=== PATIENT | female | born 1950 | race Caucasian/White ===

== ENCOUNTER 2017-12-21 07:30 | Inpatient (IN) ==
[~2017-12-21 07:30] MED LIST: ACETAMINOPHEN 500 MG TABLET PO ONE; CLINDAMYCIN PB 900 MG/50 ML BAG IV ONE; FAMOTIDINE PB 20 MG/50 ML BAG IV ONE; LIDOCAINE 1% (10mg/ml) 2mL INJ PF SDV ID ONE; METOCLOPRAMIDE 10mg/2ml INJECTION IVP ONE; ONDANSETRON 4 MG/2 ML INJECTION IVP ONE
[2017-12-21] MEDS ORDERED: EPINEPHrine PF 0.25 MG, BUPIVACAINE 0.25% PF 30 ML, KETOROLAC INJ 60 MG in NS 30 ML OPSITE ONE (08:00)
[2017-12-21 08:15] VITALS: BMI 42.5
[2017-12-21] MEDS: LR 1,000 ML IV SCH ×2 (08:40→12:22)
[2017-12-21] MEDS: NOZIN NASAL SWAB NAS SCH ×5 (08:47→21:44)
[2017-12-21] MEDS ORDERED: PROPOFOL 40 ML ONE (09:19)
[2017-12-21] MEDS ORDERED: LIDOCAINE 1% (10mg/ml) 30ml SDV INJ ONE (09:20)
[2017-12-21] MEDS ORDERED: BUPIVACAINE 0.75%/DEXTROSE 8.5% SPINAL 2 ML AMPULE IJ ONE (09:20)
[2017-12-21] MEDS ORDERED: ROPIVACAINE 0.5% (5mg/ml) 30ml INJ ONE (09:20)
[2017-12-21] MEDS ORDERED: PROPOFOL 20 ML ONE (09:22)
[2017-12-21] MEDS ORDERED: NS TOP ONE (09:30)
[2017-12-21] MEDS ORDERED: TRANEXAMIC ACID TOP ONE (09:30)
[2017-12-21] MEDS ORDERED: VANCOMYCIN 1,000 MG INJECTION IAR ONE (09:33)
[2017-12-21] MEDS ORDERED: MIDAZOLAM 2mg/2ml INJECTION ONE (10:00)
--- NOTE | 2017-12-21 11:52 | Operative Note ---
- Procedure Preoperative Diagnosis: Right knee primary degenerative joint disease Postoperative Diagnosis: Same as preoperative diagnosis. Surgeon: Katherine Uribe MD [employer] Operator: Gemma Oconnor Complications: None. Anesthesia: Spinal. Estimated Blood Loss: See Anesthesia Record. Fluids: Please see Anesthesia Record. Description of Procedure: Mrs. Ch and her right knee were identified and marked in the preoperative holding area. She was brought back to the operating suite. Spinal anesthetic was administered and she was placed supine on the operating table. The right lower extremity was prepped and draped in my normal sterile fashion. Timeout was performed. The [employer] robotic arm was used during the surgery. She had a fixed varus deformity with this 15 flexion contracture. A standard anterior midline incision followed by medial parapatellar arthrotomy was performed. Anterior fat pad and meniscus were removed. The patella was everted and a patellar osteotomy was performed leaving 12 mm of bone. Tibial and femoral arrays and checkpoints were placed both within the original incision. The bone was then registered with the [employer] robot. Osteophytes were removed and gaps were captured both 90 and 0 with correction. Her knee was balanced by placing the tibial component 1 of varus and 2 of external rotation to the femoral component. The [employer] robotic arm was then used to assist with the bone cuts. Posterior osteophytes and remaining meniscus were removed. Trial components were placed. We used a 4 femur and a 4 tibia with a 9 mm spacer and a 29 patella. She tracked well and was well balanced throughout range of motion. The arrays were then removed and the knee exsanguinated and the tourniquet inflated to 250 mmHg. The tibia was then stamped the proper rotation. I then cemented the components into place and allowed them to cure in extension. During this time the tourniquet was let down and hemostasis was obtained with electrocautery. After the cement had cured the knee again was taken through range of motion and was well balanced and tracked well. 1 g of TXA was allowed to sit in the wound for 5 minutes and then suctioned out. After a final thorough irrigation with normal saline as well as Betadine 1 g vancomycin powder was placed into the knee joint. We then closed the capsule with #1 Vicryl. I then left my customer support assistant closed the subcutaneous tissue with both 2-0 Vicryl in an interrupted fashion. The subcutaneous tissue closed with a horacio Monoderm followed by Dermabond. Mediplex dressing will be placed and the patient will be taken back to the recovery room under the care of anesthesia.
--- NOTE | 2017-12-21 12:42 | Anesthesia Procedure Note ---
Peripheral Nerve Blockade - Procedure Physician: Michael Uribe MD Date: 12/21/17 Surgical Procedure: Right Total Knee Discussion: Discussed risks/options/alternatives of anesthesia and questions answered. Patient consents. Nursing pain assessment noted. Block Start: 12:38 Block Stop: 12:39 Block Employed: Adductor Canal-Right Indication: Post-Operative Pain Approach: Right Side Confirmed Position: Semi-Cox Patient: Consent, Risks/Benefits Discussed, Informed, Post Block Act. Discussed IV Sedation: No Initial Vital Signs: Temperature 98.3 F 12/21/17 08:13 Temperature Source Oral 12/21/17 08:13 Pulse Rate 100 12/21/17 08:13 Respiratory Rate 16 12/21/17 08:13 Blood Pressure 139/94 H 12/21/17 08:13 Blood Pressure Mean 109 12/21/17 08:13 Blood Pressure Position Sitting 12/21/17 08:13 Pulse Oximetry 96 12/21/17 08:13 Oxygen Delivery Method 12/21/17 08:13 Post Vital Signs: Temperature 98.1 F 12/21/17 12:27 Pulse Rate 81 12/21/17 12:40 Respiratory Rate 20 12/21/17 12:40 Blood Pressure 86/47 12/21/17 12:40 Pulse Oximetry 98 12/21/17 12:40 Initial Pain Pain Score: 0 Post Block Pain Score: 0 Prep: Chlorhexadine/ETOH Ultrasound Used?: Yes - Injectate Ropivacaine (%): 0.5 Ropivacaine (mL): 15 Was Epi 1:200,000 Used?: No Injection: Injection made incrementally with constant monitoring and aspiration every ml
[2017-12-21] MEDS ORDERED: LORazepam 1 MG TABLET PO PRN (13:02)
[2017-12-21] MEDS ORDERED: NOZIN NASAL SWAB NAS ONE (13:02)
[2017-12-21] MEDS ORDERED: DEXAMETHASONE 20 MG/5 ML INJECTION IVP ONE (13:02)
[2017-12-21] MEDS ORDERED: ONDANSETRON 4 MG/2 ML INJECTION IVP PRN (13:02)
[2017-12-21] MEDS ORDERED: DiphenhydrAMINE 50 MG/ML INJECTION IVP PRN (13:02)
[2017-12-21] MEDS ORDERED: INSULIN ASPART 100unit/ml INJECTION SQ PRN (13:02)
[2017-12-21] MEDS ORDERED: DiphenhydrAMINE 25 MG CAPSULE PO PRN (13:02)
[2017-12-21] MEDS ORDERED: TRANEXAMIC ACID 1,000 MG/10 ML VIAL TOP ONE (13:08)
[2017-12-21] MEDS ORDERED: SALINE FLUSH 10ml SYRINGE IV PRN (13:08)
[2017-12-21] MEDS: NS 1,000 ML IV SCH (13:12)
[2017-12-21] MEDS ORDERED: FALL RISK - PHARMACY CONSULT MC ONE (13:24)
[2017-12-21] MEDS: ACETAMINOPHEN 325 MG TABLET PO SCH ×3 (14:05→21:45)
--- NOTE | 2017-12-21 14:55 | XRay Report ---
Indication: postoperative image PROCEDURE: XR knee RT 2V: Encounter: Initial Comparison: None. Findings: The patient is status post right total knee arthroplasty. The alignment is anatomic. No definite effusion or radiopaque foreign body. Impression: Anatomic alignment status post right total knee arthroplasty. .
[2017-12-21] MEDS: TRAMADOL 50 MG TABLET PO PRN ×3 (15:11→23:34)
[2017-12-21] MEDS: CLINDAMYCIN PB 900 MG/50 ML BAG IV SCH ×2 (16:04→22:06)
[2017-12-21] MEDS: LOSARTAN 50 MG TABLET PO SCH (17:19)
[2017-12-21] MEDS: RIVAROXABAN 20 MG TABLET PO SCH (17:21)
[2017-12-21] MEDS ORDERED: ATORVASTATIN 10 MG TABLET PO SCH (20:00)
[2017-12-21] MEDS ORDERED: SENNOSIDES 8.6 MG TABLET PO SCH (21:00)
[2017-12-21] MEDS: DOCUSATE SODIUM 100 MG CAPSULE PO SCH (21:45)
[2017-12-22] MEDS: NS 1,000 ML IV SCH ×2 (00:59→17:47)
[2017-12-22] MEDS: CLINDAMYCIN PB 900 MG/50 ML BAG IV SCH (04:50)
[2017-12-22] MEDS: NOZIN NASAL SWAB NAS SCH ×3 (04:51→13:20)
[2017-12-22] MEDS: DOCUSATE SODIUM 100 MG CAPSULE PO SCH (08:34)
[2017-12-22] MEDS: ACETAMINOPHEN 325 MG TABLET PO SCH ×3 (08:35→18:34)
--- NOTE | 2017-12-22 08:42 | Orthopedic Progress Note ---
Date: Date: 12/22/17 Time: 836 Subjective/Severity of Illness: Jagruti is sitting up in the chair this morning. She has ambulated in the room with walker. States her pain has been well controlled with Tramadol. Denies any CP, SOA. She reports she was nauseated last, but that resolved with zofran. Tolerating PO well. Hgb 13.3. Patient is pre-diabetic (not on home meds) with BG 144-260, she did received Decadron post op. Afib on telemetry, rate well controlled at 70-110s. Orthopedic Exam Vital signs: Temperature 97.3 F 12/22/17 07:24 Pulse Rate 82 12/22/17 07:24 Respiratory Rate 20 12/22/17 07:24 Blood Pressure 135/72 12/22/17 07:24 Pulse Oximetry 94 12/22/17 07:24 - Constitutional General Appearance: Present: alert, orientated x3, cooperative, no acute distress, well nourished - Respiratory Exam Present: CTA bilaterally, non-labored - Cardiovascular Exam Present: irregular rhythm, pedal pulses intact - Abdominal Exam Present: soft, normoactive BS x4 - Extremities Exam Present: pulses intact. Absent: calf tenderness - Dressing Dressing: dry, intact, bloody drainage Comments: mepilex right knee - Integumentary Exam Present: pink, warm, dry - Neurological Exam Present: intact to light touch, no deficits - Psychiatric Exam Present: alert, oriented - Labs Result Diagrams: 12/22/17 04:28 12/22/17 04:28 Abnormal lab results 12/21/17 12/22/17 Range/Units 08:25 04:28 BUN 20.0 H (7-17) MG/DL Creatinine 0.5 L D (0.7-1.2) mg/dL BUN/Creatinine Ratio 40 H (6-26) RATIO Glucose 132 H (65-110) MG/DL Calculated Osmolality 282 H (261-280) MOSM/KG H & H 12/22/17 Range/Units 04:28 Hgb 13.3 (12-16) GM/DL Hct 38.8 (36-46) % Orthopedic Assessment and Plan (1) Status post right knee replacement Status: Acute Assessment and Plan: Current anti-coagulation protocol- restarted home xalerto for VTE prophylaxis. SCD's for added protection. PT/OT services to improve independent function. Discharge Planning per Case Management. - Anticoagulation Therapy Anticoagulation: Resume home anticoagulant (xalerto) - Additional Diagnoses Atrial Fibrillation: resume medications, rate controlled, other (telemetry monitoring overnight) Hypertension: stable, resume medications Diabetes: continue with sliding scale insulin, other (BG monitoring. Patient pre -DM, BG elevated due to decadron. ) Anemia: no intervention required, patient was asymptomatic, labs monitored Hospital Course Summary Disclaimer: The visit summary below is not to be considered part of the above Progress Note.
--- NOTE | 2017-12-22 08:48 | Discharge Summary ---
Orthopedic Discharge Info Date of admission: 12/21/17 07:56 Anticipated date of discharge: 12/22/17 Primary care physician: Anika Palomares DO Attending Physician: Michael Uribe MD Consults: 12/21/17 08:07 Consult to Anesthesiology [CONS] Routine Reason For Exam: Preoperative Assessment 12/21/17 13:02 Case Management Consult [CONS] Routine Reason For Exam: Discharge Planning DME-Walker [CONS] Routine Height: 5 ft 4 in Weight: 112.4 kg Total Joint Outpatient Therapy [CONS] Routine Comment: Remove dressing in 2 weeks - Discharge Diagnosis (1) Status post right knee replacement Status: Acute - Laboratory Result Diagrams: 12/22/17 04:28 12/22/17 04:28 Laboratory: Abnormal lab results 12/21/17 12/22/17 Range/Units 08:25 04:28 BUN 20.0 H (7-17) MG/DL Creatinine 0.5 L D (0.7-1.2) mg/dL BUN/Creatinine Ratio 40 H (6-26) RATIO Glucose 132 H (65-110) MG/DL Calculated Osmolality 282 H (261-280) MOSM/KG H & H 12/22/17 Range/Units 04:28 Hgb 13.3 (12-16) GM/DL Hct 38.8 (36-46) % Orthopedic Discharge HPI - HPI Comments This patient was admitted for elective surgical tx of end stage degenerative joint disease that failed to respond to conservative treatment. Further details of this is found in the admission H&P. Orthopedic Hospital Course Hospital course: 12/22/17 08:45 After appropriate preoperative clearance and signing of operative consent, the patient was given IV antibiotics, according to orthopedic protocol. The patient was taken to the operating room and underwent elective joint arthroplasty. Following surgery, antibiotics were discontinued less than 24 hours according to joint protocol. Appropriate anticoagulants were initiated by restarting home xalerto and SCDs added for DVT prevention. The dressing was clean, dry, and intact. Pain control was obtained via multimodal approach. Bowel motivation addressed with scheduled and PRN medications. Early mobilization was initiated through PT services. Discharge arrangements made by a collaborative effort between the patient and Case Management. AFib- monitored with telemetry, home medications restarted. Rate well controlled HTN- home medications restarted. Pre-diabetic- BG monitoring, BG elevated due to decadron dose given post-op Anemia- labs monitored, Hgb 13.3, no acute intervention required. Follow up with PCP in 1 weeks post op. Follow-up is scheduled in 2-3 weeks. Discharge instructions given by orthopedic providers and nursing staff at discharge. Discharge condition was good. Care extended to > 2 midnight stays?: No Discharge Plan - Med Rec/Dispo Referrals/Follow Up: Anika Palomares DO [Primary Care Provider] - 12/28/17 1:20 pm Additional Instructions: [facility] ON 12/25/2017 AT 9:30AM FOR PHYSICAL THERAPY [facility]. PHONE Prescriptions: New Acetaminophen [Tylenol] 650 mg PO QID tab Docusate Sodium [Colace] 100 mg PO BID cap Milk of Magnesia [Mom] 30 ml PO DAILY udc PEG 3350 17gm PACKET [Miralax] 17 gm PO DAILY packet Tramadol [Ultram] 50 mg PO Q6H PRN #60 tab PRN Reason: Pain Continue Rivaroxaban [Xarelto] 20 mg PO WS #0 Digoxin [Digitek] 125 mg PO DAILY #0 hydroCHLOROthiazide [Hydrochlorothiazide] 12.5 mg PO DAILY #0 Losartan Potassium 25 mg PO WS Glucosamine HCl 500 mg PO DAILY Spironolactone [Aldactone 25 mg] 12.5 mg PO DAILY Levothyroxine Sodium 75 mcg PO DAILY Elderberry Fruit and Flower [Black Elderberry 575 mg Cap] 1 each PO DAILY Atorvastatin Calcium 10 mg PO PM #0 Multivitamin [One Daily Multivitamin] 1 each PO DAILY Metoprolol Succinate 100 mg PO DAILY Lactobacillus Acidophilus [Probiotic] 1 each PO DAILY [place]-3 Fatty Acids [Fish Oil Concentrate] 2,000 mg PO DAILY Toprol XL (metoprolol succinate ER) 50 mg tablet, 24 hr 50 mg PO WS 90 Days # 90 - Disposition 01 Discharged Home, Self-Care - Dismissal Complete Discharge Instructions are:: Complete
[2017-12-22] MEDS ORDERED: SPIRONOLACTONE 25 MG TABLET PO SCH (09:00)
[2017-12-22] MEDS ORDERED: LEVOTHYROXINE 75 MCG TABLET PO SCH (09:00)
[2017-12-22] MEDS ORDERED: DIGOXIN 125 MCG TABLET PO SCH (09:00)
[2017-12-22] MEDS ORDERED: POLYETHYL GLYCOL 3350 17gm PACKET PO SCH (09:00)
[2017-12-22 12:12] VITALS: BP 121/65; PULSE 92; RESP 18; TEMP 96.8; O2SAT 92
[2017-12-22] MEDS ORDERED: SENNOSIDES 8.6 MG TABLET PO PRN (12:26)
[2017-12-22] MEDS: TRAMADOL 50 MG TABLET PO PRN (12:52)
[2017-12-22] MEDS: LOSARTAN 50 MG TABLET PO SCH (18:34)
[2017-12-22] MEDS: RIVAROXABAN 20 MG TABLET PO SCH (18:34)
[2017-12-23] MEDS ORDERED: BISACODYL 10 MG SUPPOSITORY RECTALLY SCH (20:00)
== END 2017-12-22 13:30 | disposition home or self-care (01) | DRG 470 ==
LOC: NMC.PERIOP 07:56 → SRG 13:04
PROVIDERS: ADMIT Orthopaedic Surgery; ATTEND Orthopaedic Surgery